=== PATIENT | female | born 1990 | race Caucasian/White ===

== ENCOUNTER 2018-01-31 21:51 | Emergency (ER) | payer BC, OTHER ==
[~2018-01-31] VITALS: Ht 152.4 cm; Wt 43.2 kg
[2018-02-01 02:14] VITALS: BP 136/117
== END 2018-02-01 02:16 | disposition home or self-care (01) ==
LOC: EME 21:51
DX: K59.00 Constipation, unspecified (principal); Z87.39 Personal history of other diseases of the musculoskeletal system and connective tissue; Z96.89 Presence of other specified functional implants
CPT/HCPCS: 74019; 99281; 99285